=== PATIENT | male | born 1935 ===

== ENCOUNTER 2018-02-12 07:35 | Day surgery (SDC) | payer MEDICARE ==
[2018-02-10 10:06] VITALS: BMI 30.7
[2018-02-12] MEDS ORDERED: Propofol 10 mg/ml Inj (20 ML) ONE ×3 (09:27→10:34)
[2018-02-12] MEDS ORDERED: Sodium Chloride 0.9% 1,000 ML IV SCH (11:00)
[2018-02-12 11:33] VITALS: BP 172/88; PULSE 60; RESP 18; TEMP 97.7; O2SAT 95
== END 2018-02-12 12:34 | disposition home or self-care (01) ==
LOC: ENDO 07:35
PROVIDERS: ATTEND Internal Medicine Gastroenterology
DX: D12.3 Benign neoplasm of transverse colon (principal); D12.5 Benign neoplasm of sigmoid colon; D12.4 Benign neoplasm of descending colon; K57.30 Diverticulosis of large intestine without perforation or abscess without bleeding; K64.1 Second degree hemorrhoids; K62.5 Hemorrhage of anus and rectum; K31.7 Polyp of stomach and duodenum; K21.0 Gastro-esophageal reflux disease with esophagitis; K29.70 Gastritis, unspecified, without bleeding
CPT/HCPCS: 43239; 43251; 45380; 45381; 45385; 88305; 88312; 88342; J2001; J2704; J3010; J7030; J7040